=== PATIENT | female | born 1965 | race Hispanic/Latino ===

== ENCOUNTER 2022-02-02 22:12 | Emergency (ER) | payer OTHER, BC ==
[~2022-02-02] VITALS: Ht 172.7 cm; Wt 102.4 kg
[~2022-02-02 22:12] MED LIST: ACETAMINOP160 MG/52 PO; ACETAMINOPHEN325 M1 PO; BENADRYL25 MG PO; BENTYL10 MG PO; CYCLOBENZAPRINE10 MG PO; IBUPROFEN800 MG PO; LEVOTHYROXINE150 MCG PO; LIDOCAINE HCL100 ML MT; NAPROSYN500 MG PO; NORCO 5-325 TA1 EACH PO; PENICILLIN V P500 MG PO; PROMETHAZINE-COD5 ML PO; ZOFRAN ODT4 MG PO; [UNRECOGNIZED DRUG - OTHER] TOP
[2022-02-02] MEDS ORDERED: VALSARTAN40 MG PO (22:27)
[2022-02-02] MEDS ORDERED: CYCLOBENZAPRINE10 MG PO (22:51)
[2022-02-02] MEDS ORDERED: MELOXICAM15 MG PO (22:51)
== END 2022-02-02 23:31 | disposition home or self-care (01) ==
LOC: ED 22:12
DX: S80.02XA Contusion of left knee, initial encounter (principal); E03.9 Hypothyroidism, unspecified; G47.30 Sleep apnea, unspecified; Z79.899 Other long term (current) drug therapy; W01.10XA Fall on same level from slipping, tripping and stumbling with subsequent striking against unspecified object, initial encounter; Y99.0 Civilian activity done for income or pay
CPT/HCPCS: 73560; 96372; 99283-25; J1885

== ENCOUNTER 2023-08-22 00:27 | Emergency (ER) | payer OTHER, BC ==
[~2023-08-22] VITALS: Ht 172.7 cm; Wt 102.1 kg
[~2023-08-22 00:27] MED LIST changes: +MELOXICAM15 MG PO; +VALSARTAN40 MG PO
[2023-08-22] MEDS ORDERED: DIPHTH,PERTUSS(ACELL),TET VAC 0.5 ML SYRINGE IM ONE (00:45)
[2023-08-22] MEDS ORDERED: ACETAMINOPHEN 500 MG TAB PO ONE (01:15)
[2023-08-22 01:33] VITALS: BP 126/75
== END 2023-08-22 01:34 | disposition home or self-care (01) ==
LOC: ED 00:27
DX: S60.221A Contusion of right hand, initial encounter (principal); E03.9 Hypothyroidism, unspecified; G47.30 Sleep apnea, unspecified; Z79.899 Other long term (current) drug therapy; Z79.1 Long term (current) use of non-steroidal anti-inflammatories (NSAID); W20.8XXA Other cause of strike by thrown, projected or falling object, initial encounter; Y93.89 Activity, other specified; Y99.0 Civilian activity done for income or pay
CPT/HCPCS: 73130; 90471; 90715; 99283-25; A9270